=== PATIENT | male | born 2000 | race African-American/Black ===

== ENCOUNTER 2020-04-22 10:30 | Emergency (ER) | payer OTHER ==
[~2020-04-22] VITALS: Ht 177.8 cm; Wt 95.4 kg
[2020-04-22 12:12] VITALS: BP 162/72
--- NOTE | 2020-04-22 12:15 | REPVR ---
PROCEDURE INFORMATION: Exam: XR Chest, 2 Views Exam date and time: 04/22/2020 12:00 PM Age: 19 years old Clinical indication: Shortness of breath; Additional info: SOB TECHNIQUE: Imaging protocol: XR of the chest Views: Frontal and lateral upright views. COMPARISON: No relevant prior studies available. FINDINGS: Lungs: The lungs are clear bilaterally. The pulmonary vasculature is normal. Pleural space: No pleural effusion. No pneumothorax. Heart/Mediastinum: The heart is normal in size and contour. Bones/joints: No acute chest wall abnormality identified. IMPRESSION: No acute cardiopulmonary abnormality identified. Electronically signed by: Dung Martin On 04/22/2020 12:15:11 PM
--- NOTE | 2020-04-22 20:54 | ECGEPIP ---
[facility] - ED Test Date: 2020-04-22 Pat Name: VALENTIN QIU Department: Room: - Gender: Male [employer]: : [id number] Requested By: Kennedi Vu Order Number: [id number] Reading MD: Kennedi Vu Measurements Intervals [place] Rate: 63 P: 32 [place]: 151 QRS: 17 QRSD: 85 T: 19 QT: 364 QTc: 373 Interpretive Statements SINUS RHYTHM WITH MARKED SINUS ARRHYTHMIA NO PRIOR Electronically Signed on 04-22-2020 20:54:03 EDT by Kennedi Vu
== END 2020-04-22 12:16 | disposition home or self-care (01) ==
LOC: M ED 10:30
DX: T73.3XXA Exhaustion due to excessive exertion, initial encounter (principal); Y92.9 Unspecified place or not applicable; Y93.02 Activity, running; Y99.9 Unspecified external cause status